=== PATIENT | male | born 1965 | race Caucasian/White ===

== ENCOUNTER 2021-12-23 10:01 | Day surgery (SDC) | payer OTHER ==
[2021-12-21 16:16] VITALS: BMI 27.9
--- NOTE | 2021-12-22 14:07 | P.HPOR ---
History of Present Illness H&P Date: 12/22/21 Chief Complaint: Left small finger dupuytrens disease Subjective: This is a 55 year old male that presents today for initial evaluation regarding a several year history of progressively worsening flexion contracture of his left 5th digit PIP contracture. He has a left small finger proximal partial palmar fasciectomy with Dr. Mendoza on 10/16/2014 and did well after surgery but has noticed recurrence. He denies any pain but states the finger is starting to get in the way of his daily activities. Physical Examination: LUE: AIN/PIN/Radial/Ulnar/Median motor intact. Radial/Ulnar/Median SILT. 2+/4 Radial/Ulnar pulses palpated. 5/5 APB, 5/5 FDI. Negative Finkelsteins, negative CMC grind, negative Durkan's compression. Small finger PIP joint contracture of 80 degrees with palpable chord present. Imaging: X-Rays of the left 5th digit demonstrate no fracture or dislocation. Mild joint space narrowing of 5th PIP joint. Impression: 1.) Left 5th digit Dupuytrens Disease Plan: Diagnosis and treatment options were discussed with the patient. I recommend surgical intervention if he feels the deformity is interfering with his daily activities. Due to prior surgery I recommend partial palmar fasciectomy over Xiaflex. He will be schedule for right small finger partial palmar fasciectomy. Risks and benefits of surgery including recurrence, bleeding, infection, damage to surrounding tissue, need for further surgery were discussed and he wished to proceed with surgery. -Michael Thapa DO Orthopedic Hand/Upper Extremity Surgeon Past Medical History Past Medical History: Diabetes Mellitus, Hyperlipidemia, Prostate Disorder Additional Past Medical History / Comment(s): BPH, COVID 2 YRS AGO. History of Any Multi-Drug Resistant Organisms: None Reported Past Surgical History: Hernia Repair Additional Past Surgical History / Comment(s): UMBILICAL HERNIA REPAIR Past Anesthesia/Blood Transfusion Reactions: Postoperative Nausea & Vomiting (PONV) Past Psychological History: No Psychological Hx Reported Smoking Status: Current every day smoker Past Alcohol Use History: None Reported Additional Past Alcohol Use History / Comment(s): SMOKER SINCE AGE 17- 1 1/2 PPD Past Drug Use History: None Reported - Past Family History Mother Family Medical History: Cancer, Diabetes Mellitus, Osteoarthritis (OA), Thyroid Disorder Additional Family Medical History / Comment(s): SKIN CANCER Father Family Medical History: CVA/TIA, Hyperlipidemia Additional Family Medical History / Comment(s): FROM STROKE Medications and Allergies Home Medications Medication Instructions Recorded Confirmed Type Multivit-Min/Folic/Vit K/Lycop 1 each PO DAILY 12/21/21 12/21/21 History [Men's Multivitamin Tablet] Simvastatin 40 mg PO HS 12/21/21 12/21/21 History metFORMIN HCL [Glucophage] 500 mg PO TID 12/21/21 12/21/21 History Allergies Allergy/AdvReac Type Severity Reaction Status Date / Time No Known Allergies Allergy Verified 12/21/21 15:47 Physical Examination Osteopathic Statement: *. No significant issues noted on an osteopathic structural exam other than those noted in the History and Physical/Consult.
[~2021-12-23 10:01] MED LIST: DEXAMETHASONE SOD PHOSPHATE 4 MG/ML 1 ML VIAL IV ONE; HYDROmorphone 0.5 MG/0.5 ML SYRINGE IVP PRN; LACTATED RINGERS 1,000 ML IV SCH
[2021-12-23 10:19] VITALS: RESP 16; TEMP 97.4
[2021-12-23] MEDS ORDERED: ONDANSETRON 4 MG/2 ML VIAL ONE (10:27)
[2021-12-23 10:29] LABS: Glucose,Whole Blood 148 mg/dL (75-99)
[2021-12-23] MEDS ORDERED: LIDOCAINE 1% (10MG/ML) FOR IV START INTRADERMA ONE (10:33)
[2021-12-23] MEDS ORDERED: MIDAZOLAM 2 MG/2 ML VIAL IVP ONE (10:39)
[2021-12-23] MEDS ORDERED: LIDOCAINE 2% INJ 20 MG/ML (2 ML VIAL) ONE (11:26)
[2021-12-23] MEDS ORDERED: MIDAZOLAM 2 MG/2 ML VIAL ONE (11:26)
[2021-12-23] MEDS ORDERED: PROPOFOL 10 MG/ML 20 ML VIAL IV ONE (11:26)
[2021-12-23] MEDS ORDERED: fentaNYL (PF) 50 MCG/ML 2 ML AMP ONE (11:26)
[2021-12-23] MEDS ORDERED: BUPIVACAINE (PF) 0.5% 30 ML VIAL SQ ONE ×2 (12:15→12:25)
[2021-12-23] MEDS ORDERED: BACITRACIN ZINC 500 UNIT/GM OINT 28.4 GM TUBE TOPICAL ONE (12:26)
[2021-12-23 13:50] VITALS: BP 129/76; PULSE 86
--- NOTE | 2021-12-24 08:03 | P.OP ---
Date of Procedure: 12/23/21 Preoperative Diagnosis: Left small finger Dupuytren's contracture Postoperative Diagnosis: 1.) Left small finger Dupuytren's contracture 2.) Left small finger PIP joint flexion contracture Procedure(s) Performed: 1.) Left small finger palmar fasciectomy (33294) 2.) Left small finger PIP joint flexion contracture release with capsulotomy. (73555) Anesthesia: GETA Surgeon: Michael Thapa Animal Maintenance Supervisor #1: Brant Woodruff Estimated Blood Loss (ml): 0 Condition: stable Disposition: PACU Description of Procedure: This is a 55 year old male who presents today for surgical intervention for left small finger recurrent Dupuytren's contracture that has failed conservative treatment. Risks and benefits of surgery were discussed with the patient including bleeding, damage to surrounding tissue, infection, recurrence, need for further surgery as well as risks of anesthesia including pulmonary embolism and even and the patient wished to proceed with surgical intervention. The patient was seen in the pre-operative area by myself. Consent and H&P were completed and updated. The correct extremity was marked in the pre-operative area by myself and all other questions were answered. Operative Narrative: The patient was brought to the operating room by the department of anesthesia . They remained on the portable stretcher and a rolling hand table was brought to the side of the operative extremity. Pre-operative time out was performed indicating the correct patient, procedure and laterality. All in the room agreed. Pre-operative antibiotics were given prior to skin incision. The patient was then drifted off to sleep by the department of anesthesia. A nonsterile tourniquet was then applied to the operative extremity and the left upper extremity was then prepped and draped in normal sterile fashion. The operative extremity was the exsanguinated with an esmarch bandage and the tourniquet was inflated to 250mmHg. 15 blade scalpel was then used to make a incision in a Santos type fashion of the left small finger Dupuytren's cord from the level of the mid palm to the level just distal to the PIP joint crease. Blunt dissection was taken down to reveal the thickened Dupuytrens chord originating from the palmar fascia. Neurovascular bundles were identified and protected and blunt tentomy scissors and combination of 15 blade scalpel were used to the pathologic fascial tissues from surrounding structures. The thick fascial tissue was well dissected out from deep and superficial tissues and released from it's proximal attachment to the palmar fascia and then released in a proximal to distal fashion. After excision at the distal portion attachment at the level of the PIP joint crease the finger was not able to be fully extended due to PIP capsular contracture. Decision to go forward with PIP capsulotomy was performed due to persistant PIP flexion contracture. Checkrein ligaments were identified just proximal to PIP joint volarly and released sharply with 15 blade scalpel and manipulation of the digit was performed and release was felt. The small finger was now able to be near fully extended. The wound was then irrigated and skin closure was performed with 4-0 nylon sutures. 10cc's total of 0.5% bupivicaine was injected to perform digital blocks of the ring and small fingers. Large bulky soft dressing with fluffs, adaptic, bacitracin, cast padding and rosa wrap was applied. Tourniquet was let down and all digits had immediate perfusion. The patient was then woken by the department of anesthesia and transferred to PACU in stable condition. Brant GILES was present for the case in it's entirety to assist in rivers portions of the case and protection of vital neurovascular structures. Michael Thapa D.O. Orthopedic Hand/Upper Extremity Surgeon
== END 2021-12-23 14:15 | disposition home or self-care (01) ==
LOC: OR 10:01
PROVIDERS: ATTEND Orthopaedic Surgery Hand Surgery
DX: M72.0 Palmar fascial fibromatosis [Dupuytren] (principal); E11.9 Type 2 diabetes mellitus without complications; E78.5 Hyperlipidemia, unspecified; F17.200 Nicotine dependence, unspecified, uncomplicated; N40.0 Benign prostatic hyperplasia without lower urinary tract symptoms; Z79.84 Long term (current) use of oral hypoglycemic drugs; Z83.3 Family history of diabetes mellitus; Z83.49 Family history of other endocrine, nutritional and metabolic diseases; Z86.16 Personal history of COVID-19; Z80.8 Family history of malignant neoplasm of other organs or systems
CPT/HCPCS: 26123; J2250; J1100; J0690; J2405; J3010; J2704; J1170; J2001

== ENCOUNTER → 2024-01-26 | Outpatient (CLI) | payer OTHER ==
--- NOTE | 2024-01-28 18:50 | CTL ---
EXAMINATION TYPE: CT Low Dose Lung DATE OF EXAM ORDERED: 01/26/2024 HISTORY: . Lung cancer screening CT DLP: 89.[address] CTDI: 2.4 mGy Automated exposure control for dose reduction was used. SCREENING VISIT: Initial COMPARISON: None TECHNIQUE: Low dose computed tomography scan was performed through the chest at 1 mm thick sections a nd reconstructed images in the coronal plane at [address] DIAGNOSTIC QUALITY: Satisfactory FINDINGS: LUNG NODULES: None. LUNGS: COPD: Severity: None Fibrosis: Severity: None Lymph nodes: Small mediastinal lymph nodes are present and there is a 1.0 cm pretracheal lymph node Other findings: None RIGHT PLEURAL SPACE: Effusion: None Calcification: None Thickening: None Pneumothorax: None LEFT PLEURAL SPACE: Effusion: None Calcification: None Thickening: None Pneumothorax: None HEART: Other: Ascending thoracic aorta at the level the main pulmonary artery measures 3.1 cm. The main pul monary artery at the bifurcation measures 2.4 cm. Heart Size: Normal Coronary calcification: None Pericardial effusion: None OTHER FINDINGS: Upper abdomen: Normal Bony thorax: Normal Supraclavicular region: Normal IMPRESSION: 1. No suspicious lung nodules or masses to suggest primary or metastatic neoplasm. 2. There is a 1.0 cm pretracheal lymph node. FOLLOW UP CT CHEST RECOMMENDATION: Follow-up low-dose CT chest one year CT LUNG RAD: Lung-Rad 2 Benign Appearance or Behavior
== END | disposition home or self-care (01) ==
LOC: RADCTMAIN 16:20
PROVIDERS: ATTEND Family Medicine
DX: Z12.2 Encounter for screening for malignant neoplasm of respiratory organs (principal); F17.210 Nicotine dependence, cigarettes, uncomplicated
CPT/HCPCS: 71271

== ENCOUNTER → 2024-11-01 | Outpatient (CLI) | payer OTHER ==
--- NOTE | 2024-11-02 06:55 | MR ---
EXAMINATION TYPE: MR knee RT wo con DATE OF EXAM: 11/01/2024 COMPARISON: NONE HISTORY: Right knee medial posterior pain for 2 years with swelling, no known injury. Unilateral prim mabel osteoarthritis. TECHNIQUE: Multiplanar, multisequence images of the knee is performed without IV contrast. FINDINGS: MEDIAL MENISCUS: Medial bulging medial meniscus on coronal images. Emaciated appearance medial menisc us with abnormal signal through the central body into the posterior horn. LATERAL MENISCUS: Anterior and posterior horns are intact without tear. CRUCIATE LIGAMENTS: The posterior cruciate ligament is intact and unremarkable. Marked increased sign al and fanning of the fibers of the proximal portion anterior cruciate ligament. COLLATERAL LIGAMENTS: The medial collateral ligament and lateral collateral ligament complex are inta ct. Mild Fluid signal surrounds the medial collateral ligament. EXTENSOR MECHANISM: Visualized quadriceps and patellar tendons are intact. EFFUSION: Small size suprapatellar joint effusion. POPLITEAL CYST: No popliteal/león cyst. TRICOMPARTMENT SPACES: Moderate to severe narrowing and spurring patellofemoral and medial tibiofemor al compartments. Mild to moderate narrowing and spurring lateral tibiofemoral compartment. CARTILAGE: Significant cartilaginous loss medial tibiofemoral compartment with areas of full-thicknes s cartilaginous loss present. Chondromalacia patella with thinning of articular cartilage along the p osterior patellar pole. BONE MARROW SIGNAL: No focal abnormal marrow signal is appreciated. OTHER: No additional significant abnormality is appreciated. IMPRESSION: 1. Moderate to advanced tricompartment degenerative changes are present most prominent patellofemoral and medial tibiofemoral compartments as detailed above. 2. Full-thickness tear through the central body and posterior horn of the medial meniscus. 3. Significant partial tearing of the anterior cruciate ligament. 4. Mild MCL sprain injury. 5. Small-size suprapatellar joint effusion. [facility], , 11/02/2024 6:53 AM
== END | disposition home or self-care (01) ==
LOC: RADMRIMAIN 16:46
PROVIDERS: ATTEND Family Medicine
DX: S83.241A Other tear of medial meniscus, current injury, right knee, initial encounter (principal); S83.411A Sprain of medial collateral ligament of right knee, initial encounter; M17.11 Unilateral primary osteoarthritis, right knee; M25.461 Effusion, right knee; E11.42 Type 2 diabetes mellitus with diabetic polyneuropathy